=== PATIENT | male | born 1995 ===

== ENCOUNTER 2017-06-08 21:52 | Emergency (ER) | payer SELFPAY ==
[2017-06-08 22:03] VITALS: RESP 16; TEMP 97.4; O2SAT 98
--- NOTE | 2017-06-08 22:48 | ED PDOC ---
HPI: Psych/Substance Abuse Time Seen by Provider: 06/08/17 22:04 Chief Complaint (Nursing): Alcohol Ingestion Chief Complaint (Provider): ETOH usage History Per: Patient, EMS Additional Complaint(s): 21 yo male, denies any PMH, brought in by EMS for intoxication. Pt was found "passed out" inside the 8bit. Pt admits to drinking today. Awake, alert and oriented at this time. offers no complaints. Pt reports he was waiting for a friend to come pick him up Past Medical History Reviewed: Nursing Documentation, Vital Signs Vital Signs: Last Vital Signs Temp 97.4 F L 06/08/17 22:00 Pulse 94 H 06/08/17 22:00 Resp 16 06/08/17 22:00 BP 111/58 L 06/08/17 22:00 Pulse Ox 98 06/08/17 22:00 - Medical History PMH: No Chronic Diseases - Surgical History Surgical History: No Surg Hx - Family History Family History: States: No Known Family Hx - Living Arrangements Living Arrangements: With Friends/Others - Social History Current smoker - smoking cessation education provided: No Alcohol: Social Drugs: Denies - Allergies Allergies/Adverse Reactions: Allergies Allergy/AdvReac Type Severity Reaction Status Date / Time No Known Allergies Allergy Verified 06/08/17 22:04 Review of Systems ROS Statement: Except As Marked, All Systems Reviewed And Found Negative Physical Exam - Reviewed Nursing Documentation Reviewed: Yes Vital Signs Reviewed: Yes - Physical Exam Appears: Positive for: Well, Non-toxic, No Acute Distress Head Exam: Positive for: ATRAUMATIC, NORMAL INSPECTION, NORMOCEPHALIC Skin: Positive for: Normal Color, Warm, DRY Eye Exam: Positive for: EOMI, Normal appearance, PERRL ENT: Positive for: Normal ENT Inspection Neck: Positive for: Normal, Painless ROM Cardiovascular/Chest: Positive for: Regular Rate, Rhythm Respiratory: Positive for: CNT, Normal Breath Sounds Gastrointestinal/Abdominal: Positive for: Normal Exam, Bowel Sounds, Soft Back: Positive for: Normal Inspection Extremity: Positive for: Normal ROM Neurologic/Psych: Positive for: Alert, Oriented - ECG O2 Sat by Pulse Oximetry: 98 Medical Decision Making Medical Decision Making: No medical intervention needed at this time. Pt with steady gait. speaking in clear and full sentences. reports he lives in and can take the path home at this time Disposition - Clinical Impression Clinical Impression: Alcohol ingestion - Patient ED Disposition Is Patient to be Admitted: No - Disposition Disposition: Routine/Home Disposition Time: 22:49 Condition: STABLE Instructions: Abuse of Alcohol (ED) Forms: [facility] ([facility]) - POA Present On Arrival: None
[2017-06-08 22:58] VITALS: BP 122/65; PULSE 88
== END 2017-06-08 22:53 | disposition home or self-care (01) ==
LOC: H.ER 21:52
DX: F10.129 Alcohol abuse with intoxication, unspecified (principal)